=== PATIENT | female | born 1965 | race Caucasian/White ===

== ENCOUNTER 2016-05-19 15:47 | Emergency (ER) | payer MEDICARE, OTHER ==
[~2016-05-19] VITALS: Ht 175.3 cm; Wt 113.4 kg
[2016-05-19 16:03] VITALS: BP 154/71
== END 2016-05-19 16:51 | disposition home or self-care (01) ==
LOC: ER 15:48
DX: Z76.0 Encounter for issue of repeat prescription (principal); I10 Essential (primary) hypertension; E78.00 Pure hypercholesterolemia, unspecified; E03.9 Hypothyroidism, unspecified
CPT/HCPCS: 99283; A4606; Z7610

== ENCOUNTER 2018-05-23 15:12 | Emergency (ER) | payer MEDICARE, OTHER ==
[~2018-05-23] VITALS: Ht 162.6 cm; Wt 109.8 kg
[2018-05-23] MEDS ORDERED: HYDROCHLOROTHIAZIDE 25 MG TABLET ONE (16:16)
[2018-05-23] MEDS ORDERED: IBUPROFEN 400 MG TABLET ONE (16:17)
[2018-05-23 16:20] VITALS: BP 138/75
[2018-05-23] MEDS ORDERED: HYDROCHLOROTHIAZIDE 25 MG TABLET PO ONE (16:30)
[2018-05-23] MEDS ORDERED: IBUPROFEN 400 MG TABLET PO ONE (16:30)
== END 2018-05-23 16:28 | disposition home or self-care (01) ==
LOC: ER 15:13
DX: E03.9 Hypothyroidism, unspecified (principal); I10 Essential (primary) hypertension; E78.5 Hyperlipidemia, unspecified; I25.10 Atherosclerotic heart disease of native coronary artery without angina pectoris; Z91.19 Patient's noncompliance with other medical treatment and regimen; Z98.890 Other specified postprocedural states; Z60.2 Problems related to living alone
CPT/HCPCS: 71045; 99283; A4606

== ENCOUNTER 2018-06-30 13:18 | Emergency (ER) | payer MEDICARE, OTHER ==
[~2018-06-30] VITALS: Ht 162.6 cm; Wt 99.8 kg
[2018-06-30 13:25] VITALS: BP 135/84
[2018-06-30 14:00] LABS: BASOPHILS % (AUTO) 0.5 % (0.0-2.0); EOSINOPHILS % (AUTO) 1.4 % (0.0-6.0); HEMATOCRIT 29 % (33-45); HEMOGLOBIN 9.3 g/dL (11.5-14.8); LYMPHOCYTES # (AUTO) 2.8 /CMM (0.8-4.8); LYMPHOCYTES % (AUTO) 39.1 % (20.0-44.0); MEAN CORPUSCULAR HGB CONC 33 g/dl (31.0-36.0); MEAN CORPUSCULAR VOLUME 85 fL (82-100); MONOCYTES # (AUTO) 0.6 /CMM (0.1-1.30); MONOCYTES % (AUTO) 8.4 % (2.0-12.0); NEUTROPHILS # (AUTO) 3.6 /CMM (1.8-8.9); NEUTROPHILS % (AUTO) 50.6 % (43.0-81.0); PLATELET COUNT (AUTO) 520 /CMM (150-450); RED BLOOD CELL COUNT(AUTO) 3.34 MIL/uL (4.0-5.2)
[2018-06-30 14:10] LABS: CALCIUM, SERUM 9.5 mg/dL (8.5-10.1); CREATININE 0.4 mg/dL (0.6-1.3); POTASSIUM 3.7 mmol/L (3.5-5.1)
[2018-06-30 14:16] LABS: BILIRUBIN,TOTAL 0.1 mg/dL (0.2-1.0)
== END 2018-06-30 14:36 | disposition home or self-care (01) ==
LOC: ER 13:18
DX: E03.9 Hypothyroidism, unspecified (principal); I10 Essential (primary) hypertension; I25.10 Atherosclerotic heart disease of native coronary artery without angina pectoris; E78.00 Pure hypercholesterolemia, unspecified; Z98.890 Other specified postprocedural states; Z60.2 Problems related to living alone
CPT/HCPCS: 36415; 80053; 85025; 99283; A4606